=== PATIENT | female | born 1990 | race Caucasian/White ===

== ENCOUNTER → 2023-08-06 16:15 | Outpatient (CLI) | payer MEDICAID, SELFPAY ==
--- NOTE | 2023-08-06 16:19 | US_ITS ---
PROCEDURE: US OB >= 14 WEEKS FETUS CLINICAL INDICATION: us ob tv for DATES COMPARISON: No exams were available for comparison FINDINGS: Transabdominal sonographic images of the pelvis were obtained. From her last menstrual period she is 22 weeks 4 days. Single viable intrauterine gestation. Cephalic position. Placenta: Posteriorplacenta grade 1. There is an average amount of fluid. The cervix appears satisfactory. Closed and measuring 3.0 cm in length. Complete survey performed and was unremarkable on the submitted images as in PACS. No discrete anomalies identified on survey imaging by technologist. Active fetus. Three-vessel cord with satisfactory umbilical cord insertion. 4- chamber heart noted. Situs, aortic arch, LVOT, RVOT, appear normal. Survey of brain & ventricles Unremarkable. Cerebellum, thalamus, choroid plexus, cisterna magna appear normal. Face and neck survey unremarkable. Profile, nasion, lips and nose appeared normal. Diaphragm and chest views unremarkable. Abdomen: Both kidneys noted and unremarkable. Stomach and bladder noted and satisfactory. Spine: Survey of the spine satisfactory with no anomalies identified nor imaged. Cervical, thoracic, lower spine appear normal. Both arms and legs noted. Amniotic Fluid: Adequate. Measurements: Average ultrasound age 18weeks 5days. Estimated due date by ultrasound age 0501/02/2024. Estimated weight 247g BPD = 18weeks 6days HC = 18weeks 5days AC = 18weeks 4days FL = 18weeks 5days Heart Rate = 146bpm Cerebellum = 18weeks 5days Humerus = 19weeks HC/AC is 1.21 FL/BPD is 0.67 FL/AC is 0.22 heart tones are present with an FHR of 146bpm. IMPRESSION: 1. Viable fetus in the cephalic presentation with a posterior placenta grade 1. 2. Fluid is within normal limits. 3. The biometry is not consistent with her dates. The dates are off by approximately 4 weeks. We will revise her due date to reflect this and the new JAQUI will be 01/02/2024. 4. Anatomical scan appears normal. Dictated by: Thomas Whalen MD 08/07/2023 16:46 Thomas Whalen MD in [facility] 08/07/2023 16:46
== END ==
LOC: RAD 16:16
PROVIDERS: PCP Nurse Practitioner; Visit Provider Obstetrics & Gynecology
DX: Z34.92 Encounter for supervision of normal pregnancy, unspecified, second trimester (principal); Z3A.20 20 weeks gestation of pregnancy; B96.29 Other Escherichia coli [E. coli] as the cause of diseases classified elsewhere; B96.1 Klebsiella pneumoniae [K. pneumoniae] as the cause of diseases classified elsewhere
CPT/HCPCS: 76805; 87086

== ENCOUNTER 2023-08-15 14:56 | Outpatient (CLI) | payer MEDICAID, SELFPAY ==
[2023-08-15 15:05] VITALS: BMI 30.7
[2023-08-15 15:20] VITALS: BP 115/61; PULSE 89; RESP 18; O2SAT 100
[2023-08-15] MEDS: 0.9 % SODIUM CHLORIDE 50 ML 100 ML IV (15:20)
[2023-08-15] MEDS: GENTAMICIN SULFATE 360 MG in 0.9 % SODIUM CHLORIDE 100 ML 100 MG IV (15:20)
[2023-08-15 15:30] LABS: Chloride 107 mmol/L (98-107); Potassium 4.4 mmoL/L (3.5-5.1); Sodium 137 mmol/L (136-145)
[2023-08-15 15:33] LABS: Blood Urea Nitrogen 10 mg/dl (7-17); Creatinine Clearance Estimated 183 mL/min (50-200); Estimated Glomerular Filt Rate 116 ml/min (>60); GFR (African American) 140 ML/MIN (>60)
[2023-08-15 15:34] LABS: Anion Gap 8.4 mEq/L (5-15); Calcium 8.5 mg/dl (8.4-10.2); Carbon Dioxide 26 mmol/L (22.0-30.0); Glucose 85 mg/dl (74-100)
[2023-08-15 16:22] VITALS: BP 106/63; PULSE 84; RESP 18; O2SAT 100
== END 2023-08-15 16:22 | disposition home or self-care (01) ==
LOC: INF 14:58
PROVIDERS: PCP Nurse Practitioner; Visit Provider Obstetrics & Gynecology
DX: N39.0 Urinary tract infection, site not specified (principal); B96.29 Other Escherichia coli [E. coli] as the cause of diseases classified elsewhere; B96.1 Klebsiella pneumoniae [K. pneumoniae] as the cause of diseases classified elsewhere
CPT/HCPCS: 80048; 96365